=== PATIENT | female | born 1945 | race Caucasian/White ===

== ENCOUNTER → 2017-03-29 17:30 | Outpatient (CLI) | payer MEDICARE, MEDICAID ==
[2016-06-02 15:20] VITALS: BMI 16.7
[~2017-03-29 17:30] MED LIST: ACETAMINOPHEN500 M1 PO; ADVAIR 250/501 DISK INH; CALCIUM 600+D T1 TA1 PO; CELEBREX200 MG PO; DEPAKOTE250 MG PO; DEPAKOTE500 MG; DESERYL100 MG PO; DIFLUCAN150 MG PO; DOK100 MG PO; DOXYCYCLINE HY100 M2 PO; ENABLEX15 MG PO; FERROUS SULFAT325 MG PO; HYDROCODONE-APA1 TAB PO; IBUPROFEN200 MG; LINZESS145 MCG PO; MEGACE40 MG PO; MIDODRINE HCL10 MG PO; MILK OF MAGNESI30 ML GT; MIRALAX17 GM PO; MULTIPLE VITAMI1 TA1 PO; NAMENDA10 MG PO; OMEGA 3 FISH OI1 CAP PO; OMEPRAZOLE20 M1 PO; PHENERGAN25 MG RC; PRILOSEC20 MG PO; PROVENTIL/2.5 MG/3 M INH; RED YEAST RICE600 MG PO; REMERON15 MG PO; SKELAXIN800 MG PO; SLOW-MAG 64 MG64 MG PO; SYNTHROID50 MCG PO; ULTRAM50 MG PO; VESICARE10 MG; VITAMIN B-12500 MC1 PO; ZANAFLEX4 MG PO; ZANTAC150 MG PO; ZOFRAN8 MG PO; ZYRTEC10 MG PO
[2017-03-30 00:22] LABS: APPEARANCE CLOUDY (CLEAR); BILIRUBIN NEGATIVE (NEGATIVE); COLOR DK YELLOW (YELLOW); GLUCOSE NEGATIVE (NEGATIVE); KETONE NEGATIVE (NEGATIVE); LEUKOCYTE ESTERASE 2+ (NEGATIVE); NITRITE POSITIVE (NEGATIVE); PROTEIN 1+ mg/dL (NEGATIVE); UROBILINOGEN NORMAL (NORMAL)
[2017-03-30 00:23] LABS: BACTERIA MODERATE /hpf (NONE SEEN); EPITHELIAL CELLS 0-5 /hpf (0-5); RED CELLS - URINE 0-5 /hpf (0-5); WHITE CELLS - URINE 25-50 /hpf (0-5)
== END | disposition home or self-care (01) ==
LOC: D.LABREF 17:30
PROVIDERS: Urology
DX: N39.0 Urinary tract infection, site not specified (principal)

== ENCOUNTER → 2017-04-04 18:24 | Outpatient (CLI) | payer MEDICARE, MEDICAID ==
[2016-06-02 15:20] VITALS: BMI 16.7
[2017-04-04 20:38] LABS: APPEARANCE CLEAR (CLEAR); BACTERIA MANY /hpf (NONE SEEN); BILIRUBIN NEGATIVE (NEGATIVE); COLOR YELLOW (YELLOW); EPITHELIAL CELLS 0-5 /hpf (0-5); GLUCOSE NEGATIVE (NEGATIVE); KETONE NEGATIVE (NEGATIVE); LEUKOCYTE ESTERASE TRACE (NEGATIVE); NITRITE POSITIVE (NEGATIVE); PROTEIN TRACE mg/dL (NEGATIVE); RED CELLS - URINE 0-5 /hpf (0-5); UROBILINOGEN NORMAL (NORMAL); WHITE CELLS - URINE 25-50 /hpf (0-5)
== END | disposition home or self-care (01) ==
LOC: D.LABREF 18:24
PROVIDERS: Urology
DX: N39.0 Urinary tract infection, site not specified (principal)

== ENCOUNTER 2017-04-20 14:13 | Inpatient (IN) | payer MEDICARE, MEDICAID ==
[~2017-04-20] VITALS: Ht 182.9 cm; Wt 68.0 kg
[2017-04-20] MEDS ORDERED: DEPAKOTE ER500 MG PO (14:32)
[2017-04-20] MEDS ORDERED: DESERYL100 MG PO (14:34)
[2017-04-20] MEDS ORDERED: FERROUS SULFAT325 MG PO (14:34)
[2017-04-20] MEDS ORDERED: MIDODRINE HCL10 MG PO ×2 (14:35→14:36)
[2017-04-20] MEDS ORDERED: MAG 6464 MG PO (14:35)
[2017-04-20] MEDS ORDERED: MEGACE40 MG PO (14:36)
[2017-04-20] MEDS ORDERED: ALENDRONATE SOD70 MG PO (14:40)
[2017-04-20] MEDS ORDERED: OMEPRAZOLE40 MG PO (14:41)
[2017-04-20] MEDS ORDERED: ZYRTEC10 MG PO (14:43)
[2017-04-20] MEDS ORDERED: MILK OF MAGNESI30 ML PO (14:44)
[2017-04-20] MEDS ORDERED: ADVAIR 250/501 DISK INH (14:44)
[2017-04-20] MEDS ORDERED: ZANAFLEX4 MG PO (14:45)
[2017-04-20] MEDS ORDERED: VENTOLIN HFA18 GM INH (14:47)
[2017-04-20] MEDS ORDERED: DULCOLAX10 MG/SUPP RC (14:48)
[2017-04-20] MEDS ORDERED: ULTRAM50 MG PO (14:49)
[2017-04-20] MEDS ORDERED: ALBUTEROL0.63 MG/3 INH (14:51)
[2017-04-20] MEDS ORDERED: SUPRAX400 M1 PO (14:52)
[2017-04-20] MEDS ORDERED: BENADRYL 2% CRE30 GM TOPICAL (14:53)
[2017-04-20] MEDS ORDERED: VESICARE5 MG PO (14:54)
[2017-04-20] MEDS ORDERED: FLUTICASONE PRO16 GM NASAL (14:55)
[2017-04-20] MEDS ORDERED: MICONAZOLE NITR28 GM TOPICAL (14:56)
[2017-04-20] MEDS ORDERED: MYRBETRIQ50 MG PO (14:56)
[2017-04-20] MEDS ORDERED: BACLOFEN10 MG PO (14:57)
[2017-04-20] MEDS ORDERED: REMERON15 MG PO (14:59)
[2017-04-26 11:12] VITALS: Ht 182.9 cm; Wt 68.0 kg
[2017-04-27 08:29] VITALS: BP 102/65
== END 2017-04-27 13:48 | disposition home or self-care (01) | DRG 690 ==
LOC: D.M2 14:13
PROVIDERS: ADMIT Student in an Organized Health Care Education/Training Program
DX: N39.0 Urinary tract infection, site not specified (principal); B96.5 Pseudomonas (aeruginosa) (mallei) (pseudomallei) as the cause of diseases classified elsewhere; Z16.24 Resistance to multiple antibiotics; J44.9 Chronic obstructive pulmonary disease, unspecified; F31.9 Bipolar disorder, unspecified; F17.200 Nicotine dependence, unspecified, uncomplicated; G30.9 Alzheimer's disease, unspecified; F02.80 Dementia in other diseases classified elsewhere, unspecified severity, without behavioral disturbance, psychotic disturbance, mood disturbance, and anxiety; N32.89 Other specified disorders of bladder

== ENCOUNTER 2017-05-19 05:32 | Day surgery (SDC) | payer MEDICARE, MEDICAID ==
[~2017-05-19 05:32] MED LIST changes: +ALBUTEROL0.63 MG/3 INH; +ALENDRONATE SOD70 MG PO; +BACLOFEN10 MG PO; +BENADRYL 2% CRE30 GM TOPICAL; +BENADRYL25 MG PO; +CLIMARA.0375 MG/2 TRANSDERM; +DEPAKOTE ER500 MG PO; +DULCOLAX10 MG/SUPP RC; +FLUTICASONE PRO16 GM NASAL; +MAG 6464 MG PO; +MICONAZOLE NITR28 GM TOPICAL; +MILK OF MAGNESI30 ML PO; +MYRBETRIQ50 MG PO; +OMEPRAZOLE40 MG PO; +OXYBUTYNIN15 MG/BOTT PO; +SUPRAX400 M1 PO; +VENTOLIN HFA18 GM INH; +VESICARE5 MG PO
[2017-05-19 06:23] VITALS: BP 106/66; BMI 22.0
[2017-05-19 06:38] LABS: BASOPHILS 0.5 % (0-2); EOSINOPHILS 5.5 % (0-7); HEMATOCRIT 43.2 % (36.0-48.0); HEMOGLOBIN 14.4 g/dL (12-16); IMMATURE GRANULOCYTES 0.2 % (0-5); LYMPHOCYTES 44.3 % (15-50); MCH 33.2 pg (26.0-34.0); MCHC 33.3 g/dL (31.0-37.0); MCV 99.5 fL (80.0-100.0); MEAN PLATELET VOLUME 9.9 fL (7.4-10.4); MONOCYTES 12.3 % (2-11); NEUTROPHILS 37.2 % (40-80); PLATELET COUNT 288 10x3/uL (130-400); RBC 4.34 10x6/uL (4.00-5.40); RDW 14.8 % (11.5-14.5); WBC 6.4 10x3/uL (4.8-10.8)
[2017-05-19 06:46] LABS: CALC OSMOLALITY 267 mosm/kg (275-300); CALCIUM 8.6 mg/dL (8.5-10.1); CARBON DIOXIDE 21.9 mmol/L (21.0-32.0); CHLORIDE - SERUM 103 mmol/L (98-107); CREATININE - SERUM 0.6 mg/dL (0.6-1.3); POTASSIUM - SERUM 4.2 mmol/L (3.5-5.1); SODIUM 136 mmol/L (136-145); UREA NITROGEN 7 mg/dL (7-18); eGFR NON AFRICAN AMERICAN > 90 mL/min (90-120)
[2017-05-19 06:48] LABS: GLUCOSE 65 mg/dL (74-106)
--- NOTE | 2017-05-19 08:31 | NUR ---
PATIENT HAD VERY LARGE RING ON LEFT RING FINGER THAT WAS TAKEN OFF WITH SOME HIBICLENS, THEN TAKEN TO OUTPATIENTS TO GIVE TO DAUGHTER, DAUGHTER BON NOT IN ROOM AT THE TIME SO RING WAS GIVEN TO NENITA, NURSE IN OUTPATIENTS TO GIVE TO DAUGHTER WHEN SHE RETURNED, WHEN CALLING DAUGHTER FOR REPORT OF START OF CASE, I TOLD HER THAT NENITA OUTPATIENT NURSE HAD HER MOTHERS RING TO GET IT FROM HER, NINA.
[2017-05-19] MEDS ORDERED: HYDROCODONE-APA1 TAB PO (08:59)
--- NOTE | 2017-05-19 12:33 | NUR ---
1209 DISCHARGE INSTRUCTIONS GONE OVER WITH DAUGHTER BON. SHE HAS NO QUESTIONS OR CONCERNS AT THIS TIME. PRESCRIPTION FOR NORCO GIVEN. PT ESCORTED OUT BY [facility].
--- NOTE | 2017-05-19 12:36 | OP ---
PATIENT NAME: AMY MARSH MEDICAL RECORD: [id number] :49 LOCATION:[facility] ADMISSION DATE: SURGEON: JERONIMO DEVI MD DATE OF OPERATION: 05/19/2017 PREOPERATIVE DIAGNOSES: 1. Umbilical incisional hernia. 2. Stress urinary incontinence. 3. Tobacco dependence syndrome. 4. Chronic obstructive pulmonary disease. 5. Gastroesophageal reflux disease. 6. Hypothyroidism. POSTOPERATIVE DIAGNOSES: 1. Umbilical incisional hernia. 2. Stress urinary incontinence. 3. Tobacco dependence syndrome. 4. Chronic obstructive pulmonary disease. 5. Gastroesophageal reflux disease. 6. Hypothyroidism. PROCEDURE: Umbilical hernia repair with 6.4 cm Proceed mesh. SURGEON: Jeronimo Devi MD REPORT OF PROCEDURE: The patient's abdomen was prepped and draped in sterile fashion. A semicircular incision was made on the right side of the patient's umbilicus through an old incision site. Electrocautery was used to dissect through the subcutaneous tissues and around the hernia sac. The hernia sac was penetrated and we were able to enter the abdominal cavity. We ended up removing the hernia sac down to the fascial edges. The fascia was then freed up on his topside from any of its surrounding fatty attachments. The undersurface of the fascia was then cleared off taking down any abdominal adhesions, which were present. Once we had everything freed up then the total hernia defect was about 3.5 cm in greatest diameter. A 6.4-cm Proceed mesh was inserted and sutured down on all 4 sides using 0 Prolene. The fascia was then closed in the midline longitudinally using running 0 Vicryl. The wound was then irrigated out with normal saline. The umbilicus was then tacked down with an interrupted 3-0 Vicryl. The subcutaneous tissues were then reapproximated with interrupted 3-0 Vicryl. We infused with a total of 10 mL of 0.25% Marcaine plain to the surrounding tissues and then closed the skin with running subcutaneous 5-0 Monocryl. The wound was then dressed appropriately. COMPLICATIONS: None. CONDITION: Stable. ANESTHESIA: General endotracheal and local. BLOOD LOSS: Minimal. TRANSINT:[id number] Voice Confirmation ID: [id number] DOCUMENT ID: [id number] OPERATIVE REPORT [id number] AMY MARSH JERONIMO DEVI MD at 1236 CC: [id number] DICTATION DATE: 05/19/17 0905 COMMISSIONED FIRE OFFICER: 05/19/17 1058 [facility] [place] 05/19/17 [facility] [address] [place] [address]
== END 2017-05-19 12:05 | disposition home or self-care (01) ==
LOC: D.OPS 05:32 → D.PAN 07:30 → D.OPS 11:30
PROVIDERS: Surgery
DX: K42.9 Umbilical hernia without obstruction or gangrene (principal); K43.2 Incisional hernia without obstruction or gangrene; N39.3 Stress incontinence (female) (male); F17.200 Nicotine dependence, unspecified, uncomplicated; J44.9 Chronic obstructive pulmonary disease, unspecified; K21.9 Gastro-esophageal reflux disease without esophagitis; E03.9 Hypothyroidism, unspecified; Z01.812 Encounter for preprocedural laboratory examination